=== PATIENT | female | born 2005 | race Hispanic/Latino ===

== ENCOUNTER 2024-03-12 10:26 | Emergency (ER) | payer OTHER, SELFPAY ==
--- OUTSIDE RECORDS SUMMARY | 2024-03-12 10:30 | XMS REPORT | Continuity of Care Document ---
Author Name Unknown Address [address] [facility] [address] [place] [address] [facility] Address [address] [facility] [address] [place] [address] Care Team Providers Care Sales Representative Aircraft Name Role Phone Gila Arroyo Primary Care Physician [phone] TRICIA LANGE Attending Clinician Unavailabl JESSICA Kenyon Attending Clinician Unavailable Jessica Bauer MD Attending Clinician [phone] Doctor Unassigned, [place] Attending Clinician U Mary Beth Levi MD Attending Clinician [phone] Jarret Sweeney CRNA Attending Clinician [phone] Hortensia Ospina MD Attending Clinician [phone] LULY BARRERA Attending Clinician Unavailable Luly Barrera PA-C Attending Clinician [phone] Feliz RNLita Attending Clinician Unavailable MARY BETH LAW Attending Clinician Unavailable Ultrasound, Ang-Mfjojo Attending Clinician Unavaila ble 2, [facility] Attending Clinician Unavailable Matthieu Mccabe MD Attending Clinician [phone] Nurse, [facility] Attending Clinician Un available Radiology Attending Clinician Unavailable RADIOLOGY Attending Clinician Unavailable MARY BETH LAW Admitting Clinician Unavailable JESSICA BAUER Admitting Clinician Unavailable Mary Beth Law MD Admitting Clinician Jessica Bauer MD Admitting Clinician Payers Payer Name Policy Type Policy Number Effective Date Expirati on Date Source [employer] MEDICAID [id number] 2012 00:00:00 Problems Condition Name Condition Details Condition Category Status Onset Date Resolution Date Last Treatment Date Treating Clinician Comments Source Nexplanon in place Nexplanon in place Disease Active 04-01 00:00: 00 [facility] Depression during , antepartum Depression during , antepartum Disease Active 10-21 00:00: 00 [facility] Allergies, Adverse Reactions, Alerts Allergy Name Allergy Type Status Severity Reaction(s) Onset Date Inactive Date Treating Clinician Comments Source NO KNOWN ALLERGIE S Drug Class Active [facility] Social History Social Habit Start Date Stop Date Quantity Comments Source ASSERTION [facility] SDOH Alcohol Std Dr[facility] History SDOH Alcohol Binge [facility] History SDOH Alcohol Comment [place] [facility] Exposure to SARS-CoV-2 (event) 2022-03-22 00:00:00 2022-04-01 08:37:00 Not sure [facility] History of Social function 2021-10-21 00:00:00 2021-10-21 00:00:00 [facility] Alcohol intake 2021-06-29 00:00:00 2021-06-29 00:00:00 Lifetime non-drinker (finding) [facility] Tobacco use and exposure 2021-06-03 00:00:00 2021-06-03 00:00:00 Smokeless tobacco non-user [facility] History SDOH Alcohol Frequency 2021-06-03 00:00:00 2021-06-03 00:00:00 1 [facility] Sex Assigned At 2005 00:00:00 2005 00:00:00 [facility] Smoking Status Start Date Stop Date Source Never smoked tobacco [facility] Medications Ordered Medication Name Filled Medication Name Start Date Stop Date Current Medication? Ordering Clinician Indication Dosage Frequency Signature (SIG) Comments Components Source etonogestre L (NEXPLANON) implant 68 mg 04-01 15:45: 00 04-01 14:49 :00 No [id number] 68mg Univer [facility] 25/iron fum/folic/d flynn (-1 ORAL) 01-23 09:49: 09 01-23 00:00 :00 No 28 mg iron-800 mcg tablet Take 1 tablet every day by oral route for 30 days. [facility] vitamin w/FA tablet 01-23 00:00: 00 Yes [id number] 102 1{tbl} Take 1 tablet by mouth daily. [facility] docusate 100 mg capsule 01-23 00:00: 00 04-01 00:00 :00 No [id number] 102 200mg Take 2 capsules by mouth once daily as needed for Constipati on. [facility] ferrous sulfate 325 mg (65 mg iron) tablet 01-23 00:00: 00 04-01 00:00 :00 No [id number] 102 325mg Take 1 tablet by mouth daily. [facility] ibuprofen 600 mg tablet 01-23 00:00: 00 04-01 00:00 :00 No [id number] 102 600mg Take 1 tablet by mouth every 6 (six) hours as needed (Pain). Take with food or milk. [facility] blood sugar diagnostic strip 2020-08 00:00: 00 01-23 00:00 :00 No Check blood sugar 4 times daily. [facility] Blood-Gluco se Meter (BLOOD GLUCOSE MONITORING) Kit 2020-08 00:00: 00 01-23 00:00 :00 No Use as directed [facility] Lancets Misc 2020-08 00:00: 00 01-23 00:00 :00 No Check blood sugar 4 times daily. [facility] Alcohol Swabs (ALCOHOL PREP PADS) PadM 2020-08 2-03 00:00: 00 01-23 00:00 :00 No Apply to area(s) 4 (four) times daily. [facility] Immunizations Ordered Immunization Name Filled Immunization Name Date Status Comments Source MMR 2022-01-23 00:00:00 Completed [facility] MMR 2022-01-23 00:00:00 Completed [facility] MMR 2022-01-23 00:00:00 Completed [facility] TDAP 2021-11-18 00:00:00 Completed [facility] Rho (d) Immune Globulin 2021-11-18 00:00:00 Completed [facility] TDAP 2021-11-18 00:00:00 Completed [facility] Rho (d) Immune Globulin 2021-11-18 00:00:00 Completed [facility] TDAP 2021-11-18 00:00:00 Completed [facility] Rho (d) Immune Globulin 2021-11-18 00:00:00 Completed [facility] Rho (d) Immune Globulin 2021-07-30 00:00:00 Completed [facility] Rho (d) Immune Globulin 2021-07-30 00:00:00 Completed [facility] Rho (d) Immune Globulin 2021-07-30 00:00:00 Completed [facility] Influenza Virus Vaccine Quad IM, Preserv and ABX Free 6 MO-64 YRS 2021-06-03 00:00:00 Completed [facility] Influenza Virus Vaccine Quad IM, Preserv and ABX Free 6 MO-64 YRS 2021-06-03 00:00:00 Completed [facility] Influenza Virus Vaccine Quad IM, Preserv and ABX Free 6 MO-64 YRS 2021-06-03 00:00:00 Completed [facility] Influenza Virus Vaccine Quad IM, Preserv and ABX Free 6 MO-64 YRS (FLUCELVAX) Unknown Completed [facility] Rho (d) Immune Globulin Unknown Completed [facility] DTaP, Unspecified Formulation Unknown Completed [facility] DTaP, Unspecified Formulation Unknown Completed [facility] DTaP, Unspecified Formulation Unknown Completed [facility] DTaP, Unspecified Formulation Unknown Completed [facility] DTaP, Unspecified Formulation Unknown Completed [facility] Flu Injectable MDCK Quadrivalent Unknown Completed [facility] Influenza Virus Vaccine Quad .5 mL IM 6+ MO (FLUZONE/FLULAVAL/FL UARIX) Unknown Completed [facility] Influenza Virus Vaccine Quad .5 mL IM 6+ MO (FLUZONE/FLULAVAL/FL UARIX) Unknown Completed [facility] Influenza Virus Vaccine - Whole Unknown Completed [facility] HEPATITIS A Unknown Completed [facility] HEPATITIS A Unknown Completed [facility] Hep B, Unspecified Formulation Unknown Completed [facility] Hep B, Adol or Pedi Dosage Unknown Completed [facility] Hep B, Adol or Pedi Dosage Unknown Completed [facility] Haemophilus influenzae type b vaccine, conjugate unspecified formulation Unknown Completed [facility] Haemophilus influenzae type b vaccine, conjugate unspecified formulation Unknown Completed [facility] HIB 4 Dose Schedule Unknown Completed [facility] HIB 4 Dose Schedule Unknown Completed [facility] HPV Unknown Completed [facility] HPV Unknown Completed [facility] HPV9 Unknown Completed [facility] Meningococcal Polysaccharide (groups A, C, Y and W-135) conjugate vaccine (MCV4P) Unknown Completed [facility] MMR Unknown Completed [facility] Proquad (MMR/VARICELLA) Unknown Completed [facility] Proquad (MMR/VARICELLA) Unknown Completed [facility] Pneumococcal 7 Conjugate, PCV7 (Prevnar7) Unknown Completed [facility] Pneumococcal 7 Conjugate, PCV7 (Prevnar7) Unknown Completed [facility] Pneumococcal 7 Conjugate, PCV7 (Prevnar7) Unknown Completed [facility] Pneumococcal 7 Conjugate, PCV7 (Prevnar7) Unknown Completed [facility] IPV Unknown Completed [facility] IPV Unknown Completed [facility] IPV Unknown Completed [facility] IPV Unknown Completed [facility] TDAP Unknown Completed [facility] Varicella (varivax)(chicken pox) Unknown Completed [facility] Influenza Virus Vaccine Quad IM, Preserv and ABX Free 6 MO-64 YRS (FLUCELVAX) Unknown Completed [facility] DTaP, Unspecified Formulation Unknown Completed [facility] DTaP, Unspecified Formulation Unknown Completed [facility] DTaP, Unspecified Formulation Unknown Completed [facility] DTaP, Unspecified Formulation Unknown Completed [facility] DTaP, Unspecified Formulation Unknown Completed [facility] Flu Injectable MDCK Quadrivalent Unknown Completed [facility] Influenza Virus Vaccine Quad .5 mL IM 6+ MO (FLUZONE/FLULAVAL/FL UARIX) Unknown Completed [facility] Influenza Virus Vaccine Quad .5 mL IM 6+ MO (FLUZONE/FLULAVAL/FL UARIX) Unknown Completed [facility] Influenza Virus Vaccine - Whole Unknown Completed [facility] HEPATITIS A Unknown Completed [facility] HEPATITIS A Unknown Completed [facility] Hep B, Unspecified Formulation Unknown Completed [facility] Hep B, Adol or Pedi Dosage Unknown Completed [facility] Hep B, Adol or Pedi Dosage Unknown Completed [facility] Haemophilus influenzae type b vaccine, conjugate unspecified formulation Unknown Completed [facility] Haemophilus influenzae type b vaccine, conjugate unspecified formulation Unknown Completed [facility] HIB 4 Dose Schedule Unknown Completed [facility] HIB 4 Dose Schedule Unknown Completed [facility] HPV Unknown Completed [facility] HPV Unknown Completed [facility] HPV9 Unknown Completed [facility] Meningococcal Polysaccharide (groups A, C, Y and W-135) conjugate vaccine (MCV4P) Unknown Completed [facility] MMR Unknown Completed [facility] Proquad (MMR/VARICELLA) Unknown Completed [facility] Proquad (MMR/VARICELLA) Unknown Completed [facility] Pneumococcal 7 Conjugate, PCV7 (Prevnar7) Unknown Completed [facility] Pneumococcal 7 Conjugate, PCV7 (Prevnar7) Unknown Completed [facility] Pneumococcal 7 Conjugate, PCV7 (Prevnar7) Unknown Completed [facility] Pneumococcal 7 Conjugate, PCV7 (Prevnar7) Unknown Completed [facility] IPV Unknown Completed [facility] IPV Unknown Completed [facility] IPV Unknown Completed [facility] IPV Unknown Completed [facility] TDAP Unknown Completed [facility] Varicella (varivax)(chicken pox) Unknown Completed [facility] Vital Signs Vital Name Observation Time Observation Value Comments S radha Systolic blood pressure 2022-04-01 13:58:00 99 mm[Hg] [facility] Diastolic blood pressure 2022-04-01 13:58:00 59 mm[Hg] [facility] Heart rate 2022-04-01 13:58:00 62 /min [facility] Body temperature 2022-04-01 13:58:00 36.78 Blanca [facility] Respiratory rate 2022-04-01 13:58:00 18 /min [facility] Body height 2022-04-01 13:58:00 160 cm [facility] Body weight 2022-04-01 13:58:00 52.617 kg [facility] BMI 2022-04-01 13:58:00 20.55 kg/m2 [facility] Body mass index (BMI) [Percentile] Per age and sex 2022-04-01 13:58:00 42.07 % [facility] Procedures Procedure Date / Time Performed Performing Clinician Source POCT TEST 2022-04-01 14:16:00 Jessica Bauer [facility] CONSENT FOR CONTRACEPTION 2022-04-01 05:01:00 Doctor Unassigned, [place] [facility] REFERRAL- REQUEST/RESPONSE 2022-01-28 05:01:00 Doctor Unassigned, [place] [facility] Encounters Start Date/Time End Date/Time Encounter Type Admission Type Attending Clinicians Care Facility Care Department Encounter ID Source 2021-12-15 09:06:29 Outpatient P [facility] [id number] [facility] 2021-10-26 14:05:22 Outpatient P [facility] [id number] [facility] 2023-07-09 12:06:00 2023-07-09 14:58:00 Emergency ER TRICIA LANGE [facility] [id number] [facility] 2023-07-09 12:06:00 2023-07-09 14:58:00 emergency [facility] [id number] 2022-10-07 09:30:00 2022-10-07 09:30:00 Outpatient R JESSICA BAUER [facility] [id number] [facility] 2022-04-01 09:00:00 2022-04-01 09:46:08 Outpatient R JESSICA BAUER [facility] [id number] [facility] 2022-04-01 09:00:00 2022-04-01 09:46:08 Office Visit Jessica Bauer [facility] 1.2.840.114 350.1.13.10 4.2.7.2.686 [id number] [facility] 2022-04-01 00:00:00 2022-04-01 00:00:00 Orders Only Doctor Unassigned, [place] [facility] 1..840.114 350.1.13.10 4.2.7.2.686 [id number] [facility] 2022-02-25 15:30:00 2022-02-25 16:02:38 Routine Visit Jessica Bauer [facility] 1.2.840.114 350.1.13.10 4.2.7.2.686 [id number] [facility] 2022-02-25 15:30:00 2022-02-25 16:02:38 Outpatient R JESSICA BAUER [facility] [id number] [facility] 2022-02-19 00:00:00 2022-02-19 00:00:00 Telephone Jessica Bauer [facility] 1..840.114 350.1.13.10 4.2.7.2.686 [id number] 134 [id number] [facility] 2022-02-02 00:00:00 2022-02-02 00:00:00 Orders Only Doctor Unassigned, [place] [facility] 1.2.840.114 350.1.13.10 4.2.7.2.686 [id number] [facility] 2022-02-02 00:00:00 2022-02-02 00:00:00 Telephone Jessica Bauer [facility] 1.2.840.114 350.1.13.10 4.2.7.2.686 [id number] [facility] 2022-01-28 00:00:00 2022-01-28 00:00:00 Orders Only Doctor Unassigned, [place] [facility] 1.2.840.114 350.1.13.10 4.2.7.2.686 [id number] [facility] 2022-01-26 15:30:00 2022-01-26 15:30:00 Outpatient R [facility] [id number] [facility] 2022-01-22 09:06:00 2022-01-23 17:40:00 Hospital Encounter Mary Beth Law [facility] 1.2.840.114 350.1.13.10 4.2.7.2.686 [id number] [facility] 2022-01-22 11:25:00 2022-01-22 15:29:00 Anesthesia Event Jarret Sweeney Stacey [facility] 1.2.840.114 350.1.13.10 4.2.7.2.686 [id number] [facility] 2022-01-22 00:00:00 2022-01-22 00:00:00 Orders Only Doctor Unassigned, [place] [facility] 1.2.840.114 350.1.13.10 4.2.7.2.686 [id number] [facility] 2022-01-21 14:45:00 2022-01-21 15:13:30 Outpatient R LULY BARRERA [facility] [id number] [facility] 2022-01-21 14:45:00 2022-01-21 15:13:30 [facility]ine [facility] 1.2.840.114 350.1.13.10 4.2.7.2.686 [id number] 134 [id number] [facility] 2022-01-21 14:45:00 2022-01-21 15:13:30 Outpatient R BRUCE [facility] [id number] [facility] 2022-01-14 09:30:00 2022-01-14 09:58:36 Outpatient R LIZETTEJESSICA [facility] [id number] [facility] 2022-01-14 09:30:00 2022-01-14 09:58:36 Routine Visit Jessica Bauer [facility] 1.2.840.114 350.1.13.10 4.2.7.2.686 [id number] [facility] 2022-01-13 16:15:00 2022-01-13 16:15:00 Outpatient R LULY BARRERA [facility] [id number] [facility] 2022-01-08 00:00:00 2022-01-08 00:00:00 Case Management Jessica Bauer [facility] 1..840.114 350.1.13.10 4.2.7.2.686 [id number] 134 [id number] [facility] 2022-01-08 00:00:00 2022-01-08 00:00:00 Telephone Jessica Bauer [facility] 1..840.114 350.1.13.10 4.2.7.2.686 [id number] [facility] 2022-01-08 00:00:00 2022-01-08 00:00:00 Patient Secure Msg Case, Lita Altamirano [facility] 1.2.840.114 350.1.13.10 4.2.7.2.686 [id number] [facility] 2022-01-07 16:00:00 2022-01-07 16:00:00 Routine Visit Jessica Bauer [facility] 1.2.840.114 350.1.13.10 4.2.7.2.686 [id number] [facility] 2022-01-07 16:00:00 2022-01-07 14:29:32 Outpatient R JESSICA BAUER [facility] [id number] [facility] 2022-01-07 00:00:00 2022-01-07 00:00:00 Orders Only Doctor Unassigned, [place] [facility] 1.2.840.114 350.1.13.10 4.2.7.2.686 [id number] [facility] 2021-12-25 00:00:00 2021-12-25 00:00:00 Telephone Jessica Bauer [facility] 1.2.840.114 350.1.13.10 4.2.7.2.686 [id number] [facility] 2021-12-23 00:00:00 2021-12-23 00:00:00 Case Management Bruce Luly [facility] 1.2.840.114 350.1.13.10 4.2.7.2.686 [id number] [facility] 2021-12-22 16:15:00 2021-12-22 17:02:47 Outpatient R JESSICA BAUER [facility] [id number] [facility] 2021-12-22 16:15:00 2021-12-22 17:02:47 Routine Visit Jessica Bauer [facility] 1..114 350.1.13.10 4.2.7.2.686 [id number] 134 [id number] [facility] 2021-12-17 00:00:00 2021-12-17 00:00:00 Case Management Mary Beth Law [facility] 1..114 350.1.13.10 4.2.7.2.686 [id number] [facility] 2021-12-16 16:00:00 2021-12-16 16:00:00 Outpatient [facility] [id number] [facility] 2021-12-15 02:02:00 2021-12-15 08:50:00 Outpatient P MARY BETH LAW [facility] [id number] [facility] 2021-12-15 02:02:00 2021-12-15 08:50:00 Hospital Encounter Mary Beth Law [facility] 1..114 350.1.13.10 4.2.7.2.686 [id number] [facility] 2021-12-15 00:00:00 2021-12-15 00:00:00 Orders Only Doctor Unassigned, [place] [facility] 1..114 350.1.13.10 4.2.7.2.686 [id number] [facility] 2021-12-02 15:30:00 2021-12-02 15:30:00 Outpatient R LULY BARRERA [facility] [id number] [facility] 2021-12-02 00:00:00 2021-12-02 00:00:00 Telephone Luly Barrera [facility] 1..114 350.1.13.10 4.2.7.2.686 [id number] 134 [id number] [facility] 2021-12-01 16:30:00 2021-12-01 17:24:16 Outpatient R LULY BARRERA [facility] [id number] [facility] 2021-12-01 16:30:00 2021-12-01 17:24:16 Routine Visit Michaeljudy Luly [facility] 1.20.114 350.1.13.10 4.2.7.2.686 [id number] [facility] 2021-11-18 15:30:00 2021-11-18 16:37:47 Outpatient R JESSICA BAUER [facility] [id number] [facility] 2021-11-18 15:30:00 2021-11-18 16:37:47 Routine Visit Jessica Bauer [facility] 1.0.114 350.1.13.10 4.2.7.2.686 [id number] [facility] 2021-11-16 00:00:00 2021-11-16 00:00:00 Orders Only Doctor Unassigned, [place] [facility] 1.2840.114 350.1.13.10 4.2.7.2.686 [id number] [facility] 2021-11-12 00:00:00 2021-11-12 00:00:00 Telephone Jessica Bauer [facility] 1.20.114 350.1.13.10 4.2.7.2.686 [id number] [facility] 2021-11-09 15:00:00 2021-11-09 15:45:00 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 Ultrasound, Fili-Jessica Hernandez [facility] PIN [facility] 1..114 350.1.13.10 4.2.7.2.686 [id number] [facility] 2021-11-09 15:00:00 2021-11-09 15:00:00 Outpatient P JESSICA BAUER [facility] [id number] [facility] 2021-11-09 13:30:00 2021-11-09 13:45:00 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 2, [facility] Bauer [facility] 1.2.840.114 350.1.13.10 4.2.7.2.686 [id number] [facility] 2021-10-26 09:55:00 2021-10-26 14:05:00 Outpatient P RICCI BAUEREN [facility] [id number] [facility] 2021-10-26 09:55:00 2021-10-26 14:05:00 Hospital Encounter Jessica Bauer [facility] 1..840.114 350.1.13.10 4.2.7.2.686 [id number] [facility] 2021-10-26 00:00:00 2021-10-26 00:00:00 Telephone Jessica Bauer [facility] 1.2.840.114 350.1.13.10 4.2.7.2.686 [id number] 134 [id number] [facility] 2021-10-26 00:00:00 2021-10-26 00:00:00 Orders Only Doctor Unassigned, [place] [facility] 1.2.840.114 350.1.13.10 4.2.7.2.686 [id number] [facility] 2021-10-21 15:30:00 2021-10-21 16:31:02 Outpatient R BAUER [facility] [id number] [facility] 2021-10-21 15:30:00 2021-10-21 16:31:02 Routine Visit Jessica Bauer [facility] 1.2.840.114 350.1.13.10 4.2.7.2.686 [id number] [facility] 2021-10-06 00:00:00 2021-10-06 00:00:00 Orders Only Doctor Unassigned, [place] [facility] 1.2840.114 350.1.13.10 4.2.7.2.686 [id number] [facility] 2021-09-23 15:30:00 2021-09-23 16:10:12 Outpatient R BRUCE [facility] [id number] [facility] 2021-09-23 15:30:00 2021-09-23 16:10:12 Routine Visit [facility] 1.2.840.114 350.1.13.10 4.2.7.2.686 [id number] [facility] 2021-09-23 00:00:00 2021-09-23 00:00:00 Letter (Out) Ricci Baueren [facility] 1.2.84.114 350.1.13.10 4.2.7.2.686 [id number] [facility] 2021-09-10 15:45:00 2021-09-10 15:45:00 Outpatient R JESSICA BAUER [facility] [id number] [facility] 2021-09-10 15:45:00 2021-09-10 15:45:00 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 2, Adc Lab Jessica Bauer [facility] 1.2.840.114 350.1.13.10 4.2.7.2.686 [id number] [facility] 2021-09-10 14:30:00 2021-09-10 15:30:00 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 Ultrasound, Matthieu Rao [facility] [place] [facility] 1..114 350.1.13.10 4.2.7.2.686 [id number] [facility] 2021-08-28 00:00:00 2021-08-28 00:00:00 Patient Secure Msg Doctor Unassigned, [place] [facility] 1.20.114 350.1.13.10 4.2.7.2.686 [id number] 134 [id number] [facility] 2021-08-26 15:30:00 2021-08-26 15:45:00 Routine Visit Jessica Bauer [facility] 1..114 350.1.13.10 4.2.7.2.686 [id number] [facility] 2021-08-26 15:30:00 2021-08-26 15:30:00 Outpatient R LIZETTE [facility] [id number] [facility] 2021-08-26 00:00:00 2021-08-26 00:00:00 Orders Only Doctor Unassigned, [place] [facility] 1..114 350.1.13.10 4.2.7.2.686 [id number] [facility] 2021-07-30 15:00:00 2021-07-30 15:12:15 Nurse Visit Nurse, [facility] Jessica Bauer [facility] 1..114 350.1.13.10 4.2.7.2.686 [id number] [facility] 2021-07-30 14:30:00 2021-07-30 14:45:00 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 2, Adc Lab Jessica Bauer [facility] 1.2.114 350.1.13.10 4.2.7.2.686 [id number] [facility] 2021-07-30 14:30:00 2021-07-30 14:30:00 Outpatient R JESSICA BAUER [facility] [id number] [facility] 2021-07-29 16:15:00 2021-07-29 16:50:40 [facility] [id number] 2021-07-29 16:15:00 2021-07-29 16:50:40 [facility] 1..840.114 350.1.13.10 4.2.7.2.686 [id number] [facility] 2021-07-27 15:00:00 2021-07-27 15:00:00 Outpatient R LULY BARRERA [facility] [id number] [facility] 2021-07-17 00:00:00 2021-07-17 00:00:00 Telephone Jessica Bauer [facility] 1..840.114 350.1.13.10 4.2.7.2.686 [id number] [facility] 2021-07-14 00:00:00 2021-07-14 00:00:00 Telephone Jessica Bauer [facility] 1..840.114 350.1.13.10 4.2.7.2.686 [id number] [facility] 2021-07-13 00:00:00 2021-07-13 00:00:00 Orders Only Doctor Unassigned, [place] [facility] 1..840.114 350.1.13.10 4.2.7.2.686 [id number] [facility] 2021-07-10 08:31:20 2021-07-10 08:46:20 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 2, Adc Lab Jessica Bauer [facility] 1.2.840.114 350.1.13.10 4.2.7.2.686 [id number] [facility] 2021-07-10 08:30:00 2021-07-10 08:30:00 Outpatient R JESSICA BAUER [facility] [id number] [facility] 2021-07-10 00:00:00 2021-07-10 00:00:00 Telephone Jessica Bauer [facility] 1.2.840.114 350.1.13.10 4.2.7.2.686 [id number] [facility] 2021-07-08 00:00:00 2021-07-08 00:00:00 Patient Secure Msg Doctor Unassigned, [place] [facility] 1.2.840.114 350.1.13.10 4.2.7.2.686 [id number] [facility] 2021-07-07 00:00:00 2021-07-07 00:00:00 Case Management Luly Barrera [facility] 1.2.840.114 350.1.13.10 4.2.7.2.686 [id number] [facility] 2021-07-07 00:00:00 2021-07-07 00:00:00 Case Management Luly Barrera [facility] 1.2.840.114 350.1.13.10 4.2.7.2.686 [id number] [facility] 2021-07-06 08:42:45 2021-07-06 08:57:45 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 2, Adc Lab Jessica Bauer [facility] 1.2.840.114 350.1.13.10 4.2.7.2.686 [id number] [facility] 2021-07-06 08:30:00 2021-07-06 08:30:00 Outpatient R JESSICA BAUER [facility] [id number] [facility] 2021-07-06 08:30:00 2021-07-06 08:30:00 Outpatient R [facility] [id number] [facility] 2021-06-29 16:15:00 2021-06-29 16:41:55 Outpatient R JESSICA BAUER [facility] [id number] [facility] 2021-06-29 16:15:00 2021-06-29 16:41:55 Outpatient R JESSICA BAUER [facility] [id number] [facility] 2021-06-29 16:07:07 2021-06-29 16:41:55 Routine Visit Jessica Bauer [facility] 1.2.840.114 350.1.13.10 4.2.7.2.686 [id number] [facility] 2021-06-29 00:00:00 2021-06-29 00:00:00 Orders Only Doctor Unassigned, [place] [facility] 1.2.840.114 350.1.13.10 4.2.7.2.686 [id number] [facility] 2021-06-17 16:15:00 2021-06-17 16:15:00 Outpatient R JESSICA BAUER [facility] [id number] [facility] 2021-06-03 13:44:52 2021-06-03 14:59:44 Initial Visit Jessica Bauer [facility] 1.2.840.114 350.1.13.10 4.2.7.2.686 [id number] [facility] 2021-06-03 14:00:00 2021-06-03 14:00:00 Outpatient R JESSICA BAUER [facility] [id number] [facility] 2021-06-03 00:00:00 2021-06-03 00:00:00 Orders Only Doctor Unassigned, [place] [facility] 1.2.840.114 350.1.13.10 4.2.7.2.686 [id number] [facility] 2020-08-20 09:41:30 2020-08-20 23:59:00 Hospital Encounter Radiology [facility] 1.2.840.114 350.1.13.10 4.2.7.2.686 [id number] [facility] 2020-08-20 00:00:00 2020-08-20 00:00:00 Outpatient R RADIOLOGY [facility] [id number] [facility] 2020-08-20 00:00:00 2020-08-20 00:00:00 Orders Only Doctor Unassigned, [place] [facility] 1.2.840.114 350.1.13.10 4.2.7.2.686 [id number] [facility] Results Test Description Test Time Test Comments Results Result Co mments Source [facility]
[2024-03-12 12:00] LABS: Urine Bacteria None Seen /HPF (<20); Urine Bilirubin NEGATIVE (Negative); Urine Blood Negative (Negative); Urine Clarity Turbid (Clear); Urine Color Light-Yellow (Yellow); Urine Culture Reflex Order NOT NEEDED; Urine Glucose NEGATIVE (Negative); Urine Ketones NEGATIVE (Negative); Urine Microscopic Reflex YN ORDER UMIC; Urine Mucus Slight /HPF (None Seen); Urine Nitrite NEGATIVE (Negative); Urine Protein NEGATIVE (Negative); Urine RBC <5 /HPF (None Seen); Urine Urobilinogen Normal (Normal); Urine WBC <5 /HPF (<5); Urine pH 6.5 (5.0-7.0)
--- NOTE | 2024-03-12 12:25 | ER ---
Nurse's Notes [facility] [place] Name: Dany Nava Age: 18 yrs Sex: Female : 2005 Arrival Date: 03/12/2024 Time: 10:26 Bed 15 Private MD: Diagnosis: Acute vaginitis Presentation: 03/12 10:42 Chief complaint: Patient states: Vaginal itching and discharge for about 1 week. Tried hb Monistat, area got red and swollen two days after using. Coronavirus screen: Client denies travel out of the [place] in the last 14 days. At this time, the client does not indicate any symptoms associated with coronavirus-19. Ebola Screen: Patient denies travel to an Ebola-affected area in the 21 days before illness onset. Initial Sepsis Screen: Does the patient meet any 2 criteria? No. Patient's initial sepsis screen is negative. Does the patient have a suspected source of infection? No. Patient's initial sepsis screen is negative. Risk Assessment: Do you want to hurt yourself or someone else? Patient reports no desire to harm self or others. Onset of symptoms was March 06, 2024. 10:42 Method Of Arrival: Ambulatory hb 10:42 Acuity: DENIS 4 hb Historical: - Allergies: 10:45 No Known Allergies; hb - Home Meds: 10:45 None [Active]; hb - PMHx: 10:45 None; hb - PSHx: 10:45 None; hb - Immunization history:: Adult Immunizations up to date. - Infectious Disease History:: Denies. - Social history:: Smoking status: Reported history of juuling and/or vaping. Patient denies any tobacco usage or history of. Screenin:15 [facility] ED Fall Risk Assessment (Adult) History of falling in the last 3 months, dd2 including since admission No falls in past 3 months (0 pts) Confusion or Disorientation No (0 pts) Intoxicated or Sedated No (0 pts) Impaired Gait No (0 pts) Mobility Assist Device Used No (0 pt) Altered Elimination No (0 pt) Score/Fall Risk Level 0 - 2 = Low Risk Oriented to surroundings, Maintained a safe environment, Hourly rounding (assess needs \T\ fall precautionary measures) done. Abuse screen: Denies threats or abuse. Nutritional screening: No deficits noted. Tuberculosis screening: No symptoms or risk factors identified. Assessment: 12:15 General: Appears in no apparent distress. Behavior is calm, cooperative. Pain: Denies dd2 pain. Neuro: No deficits noted. Cardiovascular: No deficits noted. Respiratory: No deficits noted. GI: No deficits noted. : No deficits noted. : Reports vaginal itching, since 03/11/2024. EENT: No deficits noted. EENT: No deficits noted. Derm: No deficits noted. Musculoskeletal: No deficits noted. 13:13 Reassessment: D/C DELAYED DUE TO MEDICATIONS GIVEN AFTER D/C ORDERED. dd2 Vital Signs: 10:42 BP 139 / 86; Pulse 88; Resp 16; Temp 97.7; Pulse Ox 98% ; hb 13:20 BP 127 / 82; Pulse 84; Resp 15; Pulse Ox 99% ; dd2 ED Course: 10:29 Patient arrived in ED. ec2 10:29 Sid Whalen MD is Attending Physician. ec2 10:39 Jerica Jules FNP-C is [facility]. kb 10:44 Triage completed. hb 10:44 Arm band placed on. hb 11:37 Urinalysis w/ reflexes Sent. zm 11:37 Test, Urine Sent. zm 11:37 Wet Prep Sent. zm 11:37 GC (Rico/Chl) Probe VAGINAL (Do not order if pt is under 13, order Culture instead) Sent.zm 11:38 Assist provider with pelvic exam: Performed by Jerica MEZA Specimens sent to lab. Patient tolerated well. 12:15 Patient has correct armband on for positive identification. Bed in low position. Call dd2 light in reach. Side rails up X 1. Provided Education on: CALL LIGHT, MEDICATIONS . 12:15 Patient did not have IV access during this emergency room visit. dd2 12:31 OLGA CORONA, RN is Primary Nurse. dd2 Administered Medications: 12:49 Drug: Rocephin (cefTRIAXone) IM 500 mg IM once Route: IM; Site: left ventrogluteal; dd2 13:05 Follow up: Response: No adverse reaction dd2 12:50 Drug: AZITHromycin PO 1 grams PO once Route: PO; dd2 13:05 Follow up: Response: No adverse reaction dd2 Medication: 12:15 VIS not applicable for this client. dd2 Outcome: 12:25 Discharge ordered by . graham 13:22 Discharged to home ambulatory, dd2 13:22 Condition: stable 13:22 Discharge instructions given to patient, Instructed on discharge instructions, follow up and referral plans. Demonstrated understanding of instructions, follow-up care, 13:23 Patient left the ED. dd2 Signatures: Jerica Jules, SUPERVISOR [employer]-C JUNIOR-Mindy Chadwick RN RN Cony Mukherjee Edwin, MD MD ec2 OLGA CORONA RN RN dd2
--- NOTE | 2024-03-12 12:26 | EDPHYS ---
Physician Documentation [facility] Name: Dany Nava Age: 18 yrs Sex: Female : 2005 Arrival Date: 03/12/2024 Time: 10:26 Bed 15 Private MD: ED Physician Sid Whalen HPI: 03/12 12:14 This 18 yrs old Female presents to ER via Ambulatory with complaints of kb Vaginal Pain. 12:14 Pt is a 18 year old female who presents for vaginal irritation, itching, swelling and kb discharge that started 3 days ago. Reports she tried monistat for yeast, but symptoms got worse with that. Denies fever, nausea, vomiting, diarrhea, urinary symptoms, abd pain, fever. . Historical: - Allergies: 10:45 No Known Allergies; hb - Home Meds: 10:45 None [Active]; hb - PMHx: 10:45 None; hb - PSHx: 10:45 None; hb - Immunization history:: Adult Immunizations up to date. - Infectious Disease History:: Denies. - Social history:: Smoking status: Reported history of juuling and/or vaping. Patient denies any tobacco usage or history of. ROS: 12:13 Constitutional: As per HPI kb Exam: 12:13 Constitutional: This is a well developed, well nourished patient who is awake, alert, kb and in no acute distress. Head/Face: Normocephalic, atraumatic. ENT: Moist Mucous membranes Cardiovascular: Regular rate Respiratory: Respirations even and unlabored. No increased work of breathing. Talking in full sentences Abdomen/GI: Soft, non-tender. No distention Skin: Warm, dry with normal turgor. Normal color. MS/ Extremity: Pulses equal, no cyanosis. Neurovascular intact. Full, normal range of motion. Neuro: Awake and alert, GCS 15, oriented to person, place, time, and situation. Moves all extremities. Normal gait. 12:13 : Pelvic Exam: External exam: erythema is noted, discharge, white, Vital Signs: 10:42 BP 139 / 86; Pulse 88; Resp 16; Temp 97.7; Pulse Ox 98% ; hb 13:20 BP 127 / 82; Pulse 84; Resp 15; Pulse Ox 99% ; dd2 MDM: 10:39 Patient medically screened. kb 12:14 Differential diagnosis: uti, candidiasis, STI. Data reviewed: vital signs, nurses kb notes. Counseling: I had a detailed discussion with the patient and/or guardian regarding the historical points, exam findings, and any diagnostic results supporting the discharge/admit diagnosis, lab results, the need for outpatient follow up, a family practitioner, to return to the emergency department if symptoms worsen or persist or if there are any questions or concerns that arise at home. 12:17 ED course: Pt is a 18 year old female who presents for vaginal irritation, itching, kb swelling and discharge for 3 days. Erythema and white discharge noted on pelvic exam. Abd soft and nontender, pt is nontoxic in appearance. UA and Wet prep wnl. CG swab sent and pt educated to check pt portal for results. Patient requested treatment for gonorrhea and chlamydia at this time. stable for discharge. 03/12 10:46 Order name: Test, Urine; Complete Time: 11:56 kb 03/12 10:46 Order name: Urinalysis w/ reflexes; Complete Time: 12:04 kb 03/12 10:46 Order name: Wet Prep; Complete Time: 12:11 kb 03/12 10:46 Order name: GC (Rico/Chl) Probe VAGINAL (Do not order if pt is under 13, order Culture kb instead) Administered Medications: 12:49 Drug: Rocephin (cefTRIAXone) IM 500 mg IM once Route: IM; Site: left ventrogluteal; dd2 13:05 Follow up: Response: No adverse reaction dd2 12:50 Drug: AZITHromycin PO 1 grams PO once Route: PO; dd2 13:05 Follow up: Response: No adverse reaction dd2 Disposition Summary: 03/12/24 12:25 Discharge Ordered Notes: Location: Home kb Condition: Stable kb Diagnosis - Acute vaginitis kb Followup: kb - With: Emergency Department - When: As needed - Reason: Worsening of condition Followup: kb - With: Private Physician - When: 2 - 3 days - Reason: Recheck today's complaints, Continuance of care, Re-evaluation by your physician Discharge Instructions: - Discharge Summary Sheet kb - Vaginitis, [id number] kb Forms: - Medication Reconciliation Form kb - Antibiotic Education kb - Prescription Opioid Use kb - Patient Portal Instructions kb - Leadership Thank You Letter kb Signatures: Dispatcher [employer] EDJerica Salgado SENIOR COMMISSIONS ANALYST-C SENIOR COMMISSIONS ANALYST-Ckb Mindy Chino, RN RN OLGA CORONA, DAMEON RN dd2 Corrections: (The following items were deleted from the chart) 10:46 10:46 Test, Urine+UC.LAB.BRZ ordered. EDMS EDMS 10:46 10:46 Urinalysis+U.LAB.BRZ ordered. EDMS EDMS 10:46 10:46 Wet Prep+BA.LAB.BRZ ordered. EDMS EDMS 10:46 10:46 GC (Rico/Chl) Probe VAGINAL+R.LAB.BRZ (Do not order if pt is under 13, order EDMS Culture instead) ordered. EDMS 12:24 12:17 ED course: Pt is a 18 year old female who presents for vaginal irritation, kb itching, swelling and discharge for 3 days. Erythema and white discharge noted on pelvic exam. Abd soft and nontender, pt is nontoxic in appearance. UA and Wet prep wnl. CG swab sent and pt educated to check pt portal for results. Stable for discharge. kb
[2024-03-12] MEDS ORDERED: CEFTRIAXONE 500 MG/VIAL ONE (12:33)
[2024-03-12] MEDS ORDERED: AZITHROMYCIN 250 MG TAB ONE (12:33)
[2024-03-12] MEDS ORDERED: LIDOCAINE 1% MPF 5 ML VIAL ONE (12:35)
[2024-03-12 15:51] VITALS: TEMP 97.7
[2024-03-12 15:52] VITALS: BP 127/82; O2SAT 99
== END 2024-03-12 13:23 | disposition home or self-care (01) ==
LOC: ER 10:26
DX: N76.0 Acute vaginitis (principal)
CPT/HCPCS: 81001; 81025; 87210; 87490; 87590; 96372; 99284; J2001